=== PATIENT | female | born 1955 | race African-American/Black ===

== ENCOUNTER 2016-07-29 11:09 | Observation (INO) | payer OTHER ==
--- NOTE | 2016-07-29 11:59 | PROVIDER DOCUMENTATION ---
Addendum entered and electronically signed by Juliocesar Downing Scribe 07/29/16 17 :29: Departure - Departure Time of Disposition Order: 17:25 (REASON FOR ADDENDUM CHART WAS PREMATURELY SIGNED BY MYSELF AT [address] CAT ON PHONE WITH DR POWELL WHICH REPORTS TO ADMIT PT ) DIAGNOSIS: Abnormal CK Syncope Qualifiers: Syncope type: unspecified Qualified Code(s): R55 - Syncope and collapse Disposition: HOME 01 Certified Medical Emergency: Emergent Condition: Stable Referrals: Yadira Mendoza MD [Primary Care Provider] - Original Note: HPI-Syncope/Dizziness <Meir Cat - Last Filed: 07/29/16 16:09> - General Source: patient - History of Present Illness-Syncope/Dizzy Prior Episodes: reports: recent history Onset/Duration: reports: 2 days ago Timing: reports: still present Position/Activity at time of episode: reports: standing Symptoms prior to episode: reports: lightheaded, nausea/vomiting Context: reports: almost passed out Loss of Consciousness: no loss of consciousness Recently Seen Here or By Another Healthcare Provider: No - Dizziness Severity in ED: reports: moderate Dizziness Related Current/Associated Symptoms: reports: weakness Any recent trauma/injury?: reports: none Modifying Factors: improves with: nothing Patient usually:: reports: walks without assistance <Juliocesar Downing - Last Filed: 07/29/16 16:13> - General Chief Complaint: Near Syncope Stated Complaint: DIZZINESS/HOT FLASHES Time Seen by Provider: 07/29/16 11:48 Allergies/Adverse Reactions: Patient Allergies Allergy/AdvReac Type Severity Reaction Status Date / Time No Known Allergies Allergy Verified 07/29/16 11:38 Home Medications: Esomeprazole [Nexium] 40 mg PO DAILY 05/18/14 Lisinopril [Zestril] 40 mg PO DAILY 05/18/14 Montelukast [Singulair] 10 mg PO DAILY 05/18/14 Calcium 500 mg PO DAILY 01/05/16 Ergocalciferol (Vitamin D2) [Vitamin D2] 5,000 unit PO DAILY 01/05/16 Hydrocodone/Acetaminophen [Dewey 10-325 Tablet] 1 each PO PRN PRN 01/05/16 LOVAstatin [Mevacor] 20 mg PO WSUPPER 01/05/16 Multivitamin with Minerals [Multiple Vitamin] 1 each PO DAILY 01/05/16 Pramipexole Di-HCl [Mirapex] 1 mg PO QHS 01/05/16 Cetirizine HCl [Zyrtec] 01/09/16 - History of Present Illness-Syncope/Dizzy Nature of Presenting Problem: Reports Gastric bypass [place] last year has lost over 170 lbs and for the past two days has been having dizziness and feelings of goiing to pass out. Pt reports poor appetite. BS on arrival is 79. Pt reports she continues to have vomiting spells. Reports has been to [facility] reports heart is trying to adjust from the weight loss. (Juliocesar Downing) Review of Systems - Adult - REVIEW OF SYSTEMS - ADULT Constitutional: denies: chills, fever, fatique Eyes: reports: no symptoms reported Ears, Nose, Mouth & Throat: denies: ear pain, sinus problem, throat pain Cardiovascular: denies: chest pain, irregular heart rate, orthopnea Respiratory: denies: pleurisy, shortness of breath, wheezing Gastrointestinal: reports: see HPI, nausea, vomiting. denies: diarrhea, difficulty swallowing, frequent heartburn Genitourinary: reports: no symptoms reported Musculoskeletal: reports: other (general weakness). denies: bone pain, back pain, joint pain, joint swelling, neck pain Integumentary: reports: no symptoms reported Neurological: reports: see HPI, dizziness/vertigo. denies: numbness, paresthesia Psychiatric: reports: no symptoms reported Endocrine: reports: no symptoms reported Hematologic/Lymphatic: reports: no symptoms reported Allergic/Immunologic: reports: no symptoms reported All Other Systems: Reviewed and Negative <Juliocesar Downing - Last Filed: 07/29/16 16:13> Past History - Adult - PAST MEDICAL HISTORY-ADULT Review of Records: reports: Nursing Assessment Review, Medications Reviewed Major Childhood Illnesses: reports: denies history Cardiovascular: reports: HTN, hyperlipidemia Gastrointestinal: reports: GERD Musculoskeletal: reports: chronic pain (back and knee), other (osteoarthritis) - PRIOR SURGERIES/PROCEDURES Surgical/Procedure History: reports: hysterectomy, tonsillectomy, orthopedic ( extremity) (knee, hand, and nose) - IMMUNIZATION STATUS Childhood Immunizations: See Nurse Assessment Flu Vaccine: See Nurse Assessment - SOCIAL HISTORY Smoking: denies Substance Use: none/never <Juliocesar Downing - Last Filed: 07/29/16 16:13> Physical Exam-General - PHYSICAL EXAM-ADULT Initial Vital Signs Reviewed: Yes - CONSTITUTIONAL General Appearance: appears well, alert, other (weak appearing) - EYES Eyes: PERRL/EOMI, pink conjunctivae - HEAD, EARS, NOSE, MOUTH & THROAT HENMT: normocephalic/atraumatic, moist mucous membranes, normal ENT inspection - NECK Neck: non-tender, full range of motion, normal inspection - RESPIRATORY Respiratory: chest non-tender, lungs clear, normal breath sounds - CARDIOVASCULAR Cardiovascular: normal peripheral pulses, regular rate, rhythm, no edema - GASTROINTESTINAL (ABDOMEN) Abdominal Exam: normal bowel sounds, non tender, soft - LYMPHATIC Lymphatic: no adenopathy - MUSCULOSKELETAL Back Exam: normal inspection, no CVA tenderness, no vertebral tenderness Extremity: normal range of motion, non-tender, normal gait - SKIN Integumentary: normal color, normal turgor, warm/dry - NEUROLOGIC Neurologic: grossly normal, no motor/sensory deficits - PSYCHIATRIC Psych/Mental Status: normal mood/affect, normal thought content, normal thought process, oriented x 3 <Juliocesar Downing - Last Filed: 07/29/16 16:13> Progress - REASSESSMENT Reassessment #1 Time Reassessed: 16:10 Status: improving (Pt is doing much better and been walking around at ER w/o difficulty) <Meir Cat - Last Filed: 07/29/16 16:09> - EKG 1 Time of EKG reading by physician:: 11:49 EKG Read and Signed by:: Meir Cat EKG Interpretation (*Must complete 3 of following elements*): Abnormal Rate: 47 Rhythm: sinus esperanza [place]: normal QRS: normal - XRAY 1 XRAY: Bilateral XRAY Study: Abdomen Impression: Normal XRAY Interpretation: NAD - CT/MRI 1 CT Study: Abdomen, Pelvis, other (PULM ART) Impression: Normal (NAP INVOLVING CHEST,ABD,OR PELVIS. NO PE) <Juliocesar Downing - Last Filed: 07/29/16 16:13> - PLAN OF CARE/RESULTS Progress/Plan/Lab Results: Orders Category Date Time Status URINALYSIS PL [URINALYSIS] Stat Lab 07/29/16 11:29 Ordered EKG [EKG] Stat Ther 07/29/16 11:29 Ordered Vital Signs - 24 hr 07/29/16 11:30 Temperature 99 F Pulse Rate 58 L Respiratory 18 Rate Blood Pressure 151/93 O2 Sat by Pulse 100 Oximetry Orders Category Date Time Status Cardiac Monitoring DIRECTED Care 07/29/16 12:01 Active Saline Loc NOW Care 07/29/16 12:01 Active ABD/PELVIS/PULM ARTERIES [CT] Stat Exams 07/29/16 13:40 Ordered FLAT/UPRIGHT ABD/1 VIEW CHEST [RAD] Stat Exams 07/29/16 12:01 Draft AMYLASE [CHEM] Stat Lab 07/29/16 12:54 Completed CBC WITH ELECTRONIC DIFF [HEME] Stat Lab 07/29/16 12:54 Completed CK PROFILE [SP CHEM] Stat Lab 07/29/16 12:54 Completed COMPREHENSIVE METABOLIC PANEL [CHEM] Stat Lab 07/29/16 12:[address] D-DIMER [address] [COAG] Stat Lab 07/29/16 12:54 Completed LIPASE [CHEM] Stat Lab 07/29/16 12:54 Completed MAGNESIUM [CHEM] Stat Lab 07/29/16 12:54 Completed PRO B-NATRIURETIC PEPTIDE Stat Lab 07/29/16 12:54 Completed TROPONIN T Stat Lab 07/29/16 12:[address] [URINALYSIS] Stat Lab 07/29/16 11:29 Completed URINE MICROSCOPIC [URINALYSIS] Stat Lab 07/29/16 11:29 Completed 0.9% Sodium Chloride Inj [Ns] 1,000 ml Med 07/29/16 12:01 Discontinued IV 999 mls/hr CefTRIAXONE 1 GM/NS [Rocephin 1 gm/Ns] 50 ml Med 07/29/16 13:39 Active IV NOW EKG [EKG] Stat Ther 07/29/16 11:29 Draft Laboratory Tests 07/29/16 07/29/16 07/29/16 11:29 12:54 12:54 WBC RBC Hgb Hct MCV MCH MCHC RDW Std Deviation Plt Count MPV Immature Gran % (Auto) Neut % (Auto) Lymph % (Auto) [place] % (Auto) Eos % (Auto) Baso % (Auto) Immature Gran # (Auto) Neut # (Auto) Lymph # (Auto) [place] # (Auto) Eos # (Auto) Baso # (Auto) D-Dimer Sodium 139 Potassium 3.7 Chloride 102 Carbon Dioxide 30 Anion Gap 7 BUN 13 Creatinine 0.6 Estimated GFR/1.73 m2 > 60 BUN/Creatinine Ratio 22 Glucose 103 Calculated Osmolality 278 Calcium 9.6 Magnesium 1.9 Total Bilirubin 1.10 H AST 21 ALT 18 Alkaline Phosphatase 91 Creatine Kinase 217 H Creatine Kinase Index 3.3 H CK-MB (CK-2) 7.08 H Troponin T < 0.010 [id number] Pept Total Protein 7.1 Albumin 4.0 Globulin 3.0 Albumin/Globulin Ratio 1.0 Amylase 69 Lipase 13 Urine Source CLEAN CATCH Urine Color YELLOW Urine Clarity CLEAR Urine pH 7.0 Ur Specific [place] 1.020 Urine Protein TRACE A Urine Ketones NEGATIVE Urine Blood NEGATIVE Urine Nitrite NEGATIVE Urine Bilirubin NEGATIVE Urine Urobilinogen 1+(1 mg/dL) Urine Microscopic RBC <10 Urine WBC TRACE A Urine Microscopic WBC 10-20 A Ur Epithelial Cells >10 A Urine Crystals CA OXALATE PRESENT Urine Bacteria 2+ Urine Glucose NEGATIVE 07/29/16 07/29/16 07/29/16 12:54 12:54 12:54 WBC 4.69 L RBC 5.26 Hgb 15.0 Hct 46.0 MCV 87.5 MCH 28.5 MCHC 32.6 L RDW Std Deviation 13.3 Plt Count 260 MPV 10.5 H Immature Gran % (Auto) 0.0 Neut % (Auto) 56.5 Lymph % (Auto) 36.5 [place] % (Auto) 6.4 Eos % (Auto) 0.4 Baso % (Auto) 0.2 Immature Gran # (Auto) 0.00 Neut # (Auto) 2.65 Lymph # (Auto) 1.71 [place] # (Auto) 0.30 Eos # (Auto) 0.02 Baso # (Auto) 0.01 D-Dimer 0.82 H Sodium Potassium Chloride Carbon Dioxide Anion Gap BUN Creatinine Estimated GFR/1.73 m2 BUN/Creatinine Ratio Glucose Calculated Osmolality Calcium Magnesium Total Bilirubin AST ALT Alkaline Phosphatase Creatine Kinase Creatine Kinase Index CK-MB (CK-2) Troponin T [id number] Pept 99 Total Protein Albumin Globulin Albumin/Globulin Ratio Amylase Lipase Urine Source Urine Color Urine Clarity Urine pH Ur Specific [place] Urine Protein Urine Ketones Urine Blood Urine Nitrite Urine Bilirubin Urine Urobilinogen Urine Microscopic RBC Urine WBC Urine Microscopic WBC Ur Epithelial Cells Urine Crystals Urine Bacteria Urine Glucose (Juliocesar Downing) Departure <Meir Cat X - Last Filed: 07/29/16 16:09> - Departure Time of Disposition Order: 16:13 Certified Medical Emergency: Emergent <Juliocesar Downing - Last Filed: 07/29/16 16:13> - Departure DIAGNOSIS: Syncope Qualifiers: Syncope type: unspecified Qualified Code(s): R55 - Syncope and collapse Disposition: HOME 01 Condition: Stable Attestation - Scribe Verification/Attestation Scribe:: Juliocesar Downing Acting as Scribe for:: Meir Cat Scribe documention review:: This chart was documented by a scribe and accurately reflects the service the provider performed and the decisions made by the provider. <Juliocesar Downing - Last Filed: 07/29/16 16:13> Physician Attestation
[2016-07-29] MEDS ORDERED: NS 1,000 ML IV ONE (12:01)
[2016-07-29 12:29] LABS: URINE SOURCE CLEAN CATCH
[2016-07-29 12:37] LABS: BILIRUBIN URINE NEGATIVE (NEGATIVE); BLOOD URINE NEGATIVE (NEGATIVE); CLARITY CLEAR (CLEAR); COLOR YELLOW; GLUCOSE URINE NEGATIVE (NEGATIVE); PROTEIN URINE TRACE mg/dL (NEGATIVE); UROBILINOGEN URINE 1+(1 mg/dL)
[2016-07-29 12:38] LABS: LEUKOCYTES URINE TRACE (NEGATIVE); NITRITE URINE NEGATIVE (NEGATIVE); URINE MICROSCOPIC NEEDED? YES
[2016-07-29 12:39] LABS: URINE CRYSTAL CA OXALATE PRESENT /HPF; URINE EPITHELIAL CELLS >10 /HPF (<10); URINE RBC <10 /HPF (<10)
[2016-07-29 12:57] LABS: MANUAL DIFF NEEDED? NO
[2016-07-29 12:58] LABS: BASO% 0.2 % (0.0-0.8); EOS# 0.02 X1000 (0.0-0.7); EOS% 0.4 % (0.0-10.0); LYMPH# 1.71 X1000 (1.2-3.4); LYMPH% 36.5 % (20.5-51.1); MCH 28.5 PG (27-31); MCHC 32.6 g/dL (33-37); MCV 87.5 FL (81-99); MONO% 6.4 % (1.7-9.3); MPV 10.5 FL (7.4-10.4); NEUT% 56.5 % (42.2-75.2); PLT 260 X1000 (130-400); RBC 5.26 XMIL (4.2-5.4)
--- NOTE | 2016-07-29 13:02 | Diag Imaging Result Document ---
PROCEDURE NAME: FLAT/UPRIGHT ABD/1 VIEW CHEST - 07/29/2016 FRONTAL CHEST X-RAY AND TWO VIEWS OF THE ABDOMEN: COMPARISON: 01/08/2016. FINDINGS: The chest is clear. There are surgical clips in the left upper quadrant in the epigastrium. No bowel obstruction or free air. No abnormal calcifications. There is mild degeneration of the right hip. IMPRESSION: No acute disease.
--- NOTE | 2016-07-29 13:03 | EKG Report ---
Test Performed on : 07/29/2016 11:49:50 AM Test Reason : Dizzy Blood Pressure : / mmHG Vent. Rate : 047 BPM Atrial Rate : 047 BPM P-R Int : 144 ms QRS Dur : 076 ms QT Int : 450 ms P-R-T Axes : 062 095 079 degrees QTc Int : 398 ms Sinus bradycardia. Lateral infarct , age undetermined Abnormal ECG When compared with ECG of 05-JAN-2016 10:38, Lateral infarct is now present T wave amplitude has increased in Inferior leads Unconfirmed Result
[2016-07-29 13:18] LABS: AGAP 7; ALKALINE PHOSPHATASE 91 U/L (32-104); AMYLASE 69 U/L (20-200); BUN 13 mg/dL (8-22); CALCIUM 9.6 mg/dL (8.8-10.2); CHLORIDE 102 mmol/L (98-107); COSMO 278; GOT 21 U/L (10-30); GPT 18 U/L (10-36); LIPASE 13 U/L (13-60); MAGNESIUM 1.9 mg/dL (1.5-2.7); POTASSIUM 3.7 mmol/L (3.5-5.1); SODIUM 139 mmol/L (136-145); TCO2 30 mmol/L (25-35); TOTAL PROTEIN 7.1 g/dL (6.3-8.3)
[2016-07-29 13:27] LABS: CK PROFILE 217 U/L (24-173)
[2016-07-29] MEDS ORDERED: ROCEPHIN 1 GM/NS 50 ML IV ONE (13:39)
[2016-07-29 13:47] LABS: CK INDEX 3.3 (0.0-2.5); CK-MB 7.08 ng/mL (0.0-5.0)
--- NOTE | 2016-07-29 15:45 | Diag Imaging Result Document ---
PROCEDURE NAME: ABD/PELVIS/PULM ARTERIES - 07/29/[address] OF THE ABDOMEN AND PELVIS WITH CONTRAST: COMPARISON: CTA chest dated 05/18/2014. No prior CT of the abdomen and pelvis is available for comparison. FINDINGS: CTA chest: There is no evidence of pulmonary embolism. There is no evidence of aortic aneurysm. There is no evidence of significant mediastinal lymphadenopathy. The heart is perhaps borderline prominent. The lungs are clear. There is no pleural fluid collection. ABDOMEN/PELVIS: There are postsurgical changes associated with the stomach related to prior gastric bypass. There appears to be a punctate nonobstructing intrarenal stone on the right. There is no evidence of hydronephrosis. There is a tiny left renal cyst. There is no evidence of bowel obstruction. There has been a previous hysterectomy. There appear to be a few colonic diverticula, but there is no evidence of diverticulitis. The appendix is normal. No focal inflammatory change, free abdominal gas, or free fluid is appreciated. There is a small umbilical hernia containing only fat. The remainder of the solid viscera of the abdomen and pelvis and the remainder of the GI tract is essentially unremarkable. IMPRESSION: 1. No evidence of pulmonary embolism or other definite acute chest pathology. 2. Postsurgical changes associated with the stomach from prior gastric bypass. 3. Other incidental/nonacute findings detailed above with no definite acute pathology involving the abdomen or pelvis.
[2016-07-29 17:01] LABS: CK INDEX 3.1 (0.0-2.5); CK-MB 6.45 ng/mL (0.0-5.0)
[2016-07-29] MEDS ORDERED: TYLENOL PO PRN (19:40)
[2016-07-29] MEDS ORDERED: NORCO-10 PO PRN (19:40)
[2016-07-29] MEDS: MIRAPEX PO SCH (21:23)
[2016-07-29] MEDS: NS 1,000 ML IV SCH (21:24)
[2016-07-29] MEDS: ZOFRAN IV PRN (21:26)
[2016-07-30] MEDS: NS 1,000 ML IV SCH ×3 (05:33→20:25)
[2016-07-30 08:28] LABS: AGAP 7; ALBUMIN 3.5 g/dL (3.5-5.0); ALKALINE PHOSPHATASE 78 U/L (32-104); BUN 8 mg/dL (8-22); CALCIUM 9.3 mg/dL (8.8-10.2); CHLORIDE 104 mmol/L (98-107); COSMO 273; GOT 20 U/L (10-30); GPT 14 U/L (10-36); POTASSIUM 3.9 mmol/L (3.5-5.1); SODIUM 137 mmol/L (136-145); TCO2 27 mmol/L (25-35); TOTAL PROTEIN 6.2 g/dL (6.3-8.3)
[2016-07-30 08:33] LABS: HEMATOCRIT 42.4 % (37.0-47.0); HEMOGLOBIN 13.9 g/dL (12.0-16.0); MCH 28.7 PG (27-31); MCHC 32.8 g/dL (33-37); MCV 87.6 FL (81-99); MPV 10.9 FL (7.4-10.4); RBC 4.84 XMIL (4.2-5.4)
[2016-07-30] MEDS ORDERED: FLUZONE QUAD 2016-2017 SYRINGE IM ONE (09:00)
[2016-07-30] MEDS: LOVENOX SUBQ SCH (09:31)
--- NOTE | 2016-07-30 11:22 | PROGRESS NOTE ---
DATE: 07/30/2016 SUBJECTIVE: The patient states she is feeling little bit better. Denies any chest pain or palpitations. Denies any diarrhea, constipation or melena. Denies any dysuria, urine frequency, urgency. Denies any dizziness. Does not have any syncope, although she notes she has not been out of bed yet since being admitted last night. PHYSICAL EXAMINATION: Vital Signs: Temperature 98, pulse 53, respiratory 18, BP 116/61. General: Patient well developed, well nourished. Currently in no real respiratory distress. She is awake, alert, oriented. Neck: Supple. CV: Regular rate and rhythm. No murmurs. Chest: Clear, nonlabored. Soft, nondistended, nontender. Extremities: Moves all extremities well. Neurologic: No focal changes. Skin: Warm and dry, no rashes. LABS: Reviewed, stable. Bilirubin of 1.2. ASSESSMENT: 1. Syncope. We will get physical therapy involved today. We will help her get up and move around. Hopefully, this will improve with IV fluids. She states that she is feeling a little bit better and hopefully will be able to discharge home. 2. Mild rhabdomyolysis. For some reason her CPK was elevated at 217 on admission. After IV fluids currently at 136. Hyperbilirubinemia. Uncertain etiology, likely chronic. 3. Elevated D-dimer. Her ultrasound of bilateral lower extremities is negative CTA is currently pending. PLAN: Hopefully she will be able to discharge home later this afternoon if her dizziness and presyncopal symptoms have resolved. We will continue to follow.
--- NOTE | 2016-07-30 12:58 | HISTORY AND PHYSICAL ---
PRIMARY CARE PHYSICIAN: Dr. Mendoza CHIEF COMPLAINT: Dizziness for the past 2 days and a decreased appetite. HISTORY OF PRESENTING ILLNESS: This is a 61-year-old female who has had increased dizziness over the past 2 days, feeling hot, nauseated at times, decreased appetite. Workup in the ER showed an elevated D-dimer at 0.82, elevated CK of 217 with a CK-MB of 7.08 with a negative troponin of 0.010. A CT of the abdomen and pelvis was done that showed no evidence of pulmonary embolism or other definite acute chest pathology and no other incidental acute findings. She was admitted for further evaluation and treatment. PAST MEDICAL HISTORY: Hypertension. Hyperlipidemia. GERD. Chronic back pain. PAST SURGICAL HISTORY: Gastric bypass sleeve. Hysterectomy. Tonsillectomy. FAMILY HISTORY: Noncontributory. SOCIAL HISTORY: She currently lives alone. Denies any tobacco, alcohol, or illicit drug use. ALLERGIES: She has no known drug allergies. HOME MEDICATIONS: We will obtain a current list of her medications and restart as appropriate. LABORATORY DATA: White blood cell count of 4.69. Hemoglobin 15. Hematocrit 46. Platelets . D-dimer of 0.82. Sodium 139. Potassium 3.7. Chloride 102. CO2 of 30. BUN of 13. Creatinine 0.6. Glucose 103. Magnesium 1.9. Creatine kinase of 217. CK-MB of 7.08 with negative troponin. Repeat 4 hours later showed a CK of 208, CK-MB of 6.45, negative troponin. Third set this morning showed a creatine kinase of 136. Urinalysis was trace white blood cells, 2+ bacteria, negative nitrites. REVIEW OF SYSTEMS: She was positive for dizziness, nausea, vomiting, decreased appetite, decreased energy; otherwise, negative review of systems. PHYSICAL EXAMINATION: VITAL SIGNS: Temperature 99 degrees. Pulse 58. Respirations 18. Blood pressure 151/93. Saturating 100% on room air. GENERAL: This is a 61-year-old female who is lying in the bed and answers questions appropriately. HEENT: Normocephalic and atraumatic. Pupils are equal, round, reactive to light. Extraocular movements are intact. Oropharynx and nares are clear. NECK: Supple. LUNGS: Clear to auscultation bilaterally with equal lung expansion and chest wall movement. HEART: Regular rate and rhythm. No murmurs, rubs, or gallops. ABDOMEN: Soft. Nontender, nondistended. Bowel sounds are present x4 quadrants. EXTREMITIES: There is no clubbing, cyanosis, or edema. NEUROLOGICAL: The cranial nerves 2-12 appear grossly intact. ASSESSMENT: 1. Syncope. 2. Elevated CPK. 3. Dizziness. 4. Elevated D-dimer. 5. Bradycardia. 6. Urinary tract infection. PLAN: She was admitted to the medical unit at [facility] and placed on telemetry. We will check an echocardiogram and carotid ultrasound today. We will check a urine culture, check a vitamin B12, and continue normal saline at 125 mL an hour. Lovenox 40 mg subcutaneous q.24 for DVT prophylaxis. We will continue Rocephin until we receive the urine culture back. Dictated by WENDI Munguia for Micah Davidson MD
--- NOTE | 2016-07-30 14:15 | CONSULTATION ---
DATE OF CONSULTATION: 07/30/2016 HISTORY OF PRESENT ILLNESS: Ms. Can is a 61-year-old black lady who has had increasing episodes of dizziness for the last 2 days, had nausea, was admitted came to the emergency room. Had elevated D-dimers, elevated CK and had a CT scan of her chest, abdomen done. There was no pulmonary embolism. She denies chest pain suggestive of angina. She has had gastric bypass and is followed by Dr. Murcia. She says she has been having nausea and some vomiting almost at least 3- 4 times a week. This is been an ongoing process and she has followup appointment to follow up with the surgeon and further test may need to be done given the gastric bypass sleeve. There is no hematemesis or melena. From a cardiac standpoint, she has not had any significant cardiac history other than having had a cardiac murmur in the past. She also was noted to have bradycardia in the past. She has a history of hypertension. REVIEW OF SYSTEMS: Fourteen-point review of systems was done.GI: As above. Genitourinary: There is no dysuria or hematuria. Cardiovascular System: No chest pain. Endocrine: Stable. Musculoskeletal system: Has had knee surgery. PAST MEDICAL HISTORY: 1. Durga arrhythmias. 2. Hypertension. 3. Gastric bypass surgery. 4. Left knee arthroplasty 01/07/2016. 5. Cardiac murmur. 6. Hypertension. 7. Gastroesophageal reflux disease. 8. Hypercholesterolemia. 9. Has had bradycardia in the past with a heart rate of 46 beats per minute, sinus bradycardia. This was also noted during arthroscopy. MEDICATIONS AT HOME: Medications need to be reconciled at least from our office. Notes she was on lisinopril 40, lovastatin 20, Singulair 10, Pepcid 20, Nexium 40. PHYSICAL EXAMINATION: Vital Signs: Blood pressure was 155/88. Cardiovascular System: Normal jugular venous pressure. First and second heart sounds heard. There was systolic murmur. There was no S3 gallop. Respiratory System: Normal air entry. There is no crepitations or rhonchi. Abdomen: Soft, nontender. There was no guarding or rigidity. Bowel sounds were heard. Central nervous system: Alert and was moving all 4 extremities. Extremities: Examination of extremities revealed no pedal edema. HEENT: Atraumatic, normocephalic. Pupils were equal and reacting to light. LABORATORY EXAMINATION: Revealed sodium 137, potassium 3.9, BUN 8, creatinine 0.6. Troponin 2 sets were negative. CK 208 and 1361. CK/MB was 6.4. Echocardiogram revealed sinus bradycardia. There were no ST-T changes to suggest ischemia. ASSESSMENT AND PLAN: 1. Ms Gaby Can is a 61-year-old black lady with history of hypertension, hypercholesterolemia, bradycardia in the past and a murmur was seen today. She has had episode of dizziness. So far she is in sinus rhythm. I have not made any changes to her medication. She is not on any beta blockers to account for decreasing heart rate. Will get an echocardiogram to reassess cardiac and valvular function. 2. She has had nausea and vomiting at least 4 times a week since the gastric bypass surgery and is going to see the bariatric surgeon and apparently surgery may need to be contemplated. I have not made any other changes to her medications. She has had dizziness but currently she feels well. Thank you for the consult.
--- NOTE | 2016-07-30 15:27 | ECHO REPORT ---
ORDER DATE: 07/30/2016 PROCEDURE: Echocardiogram. ECHOCARDIOGRAPHIC MEASUREMENTS: 1. Interventricular septum 1.4 2. Left ventricular posterior wall 1.3. 3. Diastolic diameter 4.5. 4. Left atrium 4.0. 5. Aorta 3.4. INTERPRETATION: 1. Normal left ventricular cavity size. Mild left ventricular hypertrophy. Estimated ejection fraction of 60%. 2. Aortic valve leaflets are trileaflet. 3. Mitral valve was normal. 4. Tricuspid valve was normal. 5. Pulmonic valve was normal. 6. Peak velocity across the aortic valve less than 2 m/sec. There is no aortic stenosis. There is mild aortic regurgitation. 7. There is mild to moderate tricuspid regurgitation. Peak velocity across the tricuspid valve was 3.3 m/sec. 8. Pulmonary artery systolic pressure 46 mmHg, 9. There is mild mitral regurgitation. Trace pulmonary regurgitation. 10. There is no pericardial effusion or obvious intracardiac mass or thrombus seen. 11. There is mild left atrial enlargement.
[2016-07-30] MEDS ORDERED: NORCO-10 PO PRN (16:35)
[2016-07-30] MEDS: ZOFRAN IV PRN (16:59)
[2016-07-30] MEDS ORDERED: ZOFRAN ODT PO PRN (17:45)
[2016-07-30] MEDS: PRINIVIL PO SCH (18:40)
[2016-07-30] MEDS: NEXIUM PO SCH (18:40)
[2016-07-30] MEDS: MIRAPEX PO SCH (20:24)
[2016-07-31] MEDS: NS 1,000 ML IV SCH (04:11)
[2016-07-31 05:59] LABS: MANUAL DIFF NEEDED? NO
[2016-07-31 06:18] LABS: AGAP 6; BASO% 0.4 % (0.0-0.8); BUN 7 mg/dL (8-22); CALCIUM 8.7 mg/dL (8.8-10.2); CHLORIDE 106 mmol/L (98-107); COSMO 273; EOS# 0.16 X1000 (0.0-0.7); EOS% 3.4 % (0.0-10.0); HEMATOCRIT 41.9 % (37.0-47.0); HEMOGLOBIN 13.3 g/dL (12.0-16.0); LYMPH# 2.64 X1000 (1.2-3.4); LYMPH% 56.2 % (20.5-51.1); MCH 28.1 PG (27-31); MCHC 31.7 g/dL (33-37); MCV 88.6 FL (81-99); MONO# 0.48 X1000 (0.11-0.59); MONO% 10.2 % (1.7-9.3); MPV 10.6 FL (7.4-10.4); NEUT% 29.8 % (42.2-75.2); PLT 203 X1000 (130-400); RBC 4.73 XMIL (4.2-5.4); SODIUM 138 mmol/L (136-145); TCO2 26 mmol/L (25-35)
[2016-07-31] MEDS: NEXIUM PO SCH (06:33)
[2016-07-31] MEDS ORDERED: ZYRTEC PO SCH (09:00)
[2016-07-31] MEDS ORDERED: VITAMIN D PO SCH (09:00)
[2016-07-31] MEDS ORDERED: SINGULAIR PO SCH (09:00)
[2016-07-31] MEDS: PRINIVIL PO SCH (09:14)
[2016-07-31] MEDS: LOVENOX SUBQ SCH (09:14)
[2016-07-31 12:07] VITALS: BP 169/72
[2016-07-31] MEDS ORDERED: MEVACOR PO SCH (17:00)
--- NOTE | 2016-08-01 06:23 | DISCHARGE SUMMARY ---
ADMISSION DATE: 07/29/2016 DISCHARGE DATE: 07/31/2016 PRIMARY CARE PHYSICIAN: Dr. Mendoza. ADMISSION DIAGNOSES: 1. Syncope. 2. Elevated CPK. 3. Dizziness. 4. Elevated D-dimer. 5. Bradycardia. 6. Urinary tract infection. SUMMARY OF FINDINGS: This is a 61-year-old, female who presented to [facility] ER with complaints of dizziness, feeling hot, nauseous at times, decreased appetite. She does state that her nausea and vomiting have been since she had a gastric sleeve done. They did a CT of the abdomen and pelvis that showed no evidence of a pulmonary emboli or acute chest pathology. Urinalysis showed negative nitrites but a trace of white blood cells and 2+ bacteria. A urine culture showed no growth. She had some elevation in her CK and CK-MB mildly when she came in. That has resolved. We checked a vitamin B12 level due to her complaints of fatigue and her surgery with gastric sleeve. It was 660, within normal limits. D-dimer was 0.82. We did a venous ultrasound of bilateral lower extremities that was negative for a DVT. She was noted to have some bradycardia, going as low as 40 but mainly stayed in upper 40s and lower 50s. This morning, she is at 55. We did consult cardiology who saw the patient, did echocardiogram. She had an estimated ejection fraction of 60% with normal left ventricular cavity size. She was not on any beta blockers that would account for her bradycardia so no medication changes were made at this time. This morning, she states that she is feeling better and so it is felt that she can safely be discharged home today. She will continue her home medications with no new prescriptions as follows: Zyrtec 10 mg p.o. daily, vitamin D3 5000 units p.o. daily, Nexium 40 mg p.o. daily, lisinopril 40 mg p.o. daily, lovastatin 20 mg p.o. with supper, Singulair 10 mg p.o. daily, Zofran 4 mg p.o. q.6 hours p.r.n., Mirapex 1 mg p.o. at bedtime, and her [place] 10 one p.o. q.6-8 hours p.r.n. FOLLOWUP: The patient will follow up with her primary care physician in 1-2 weeks. We will also give her a prescription for Bactrim DS 1 p.o. b.i.d. for 7 days. The patient states that she has had some hot flashes recently and she was instructed to follow up with her [employer] for a complete hormone workup and the possibility of hormone replacement therapy. Patient verbalized understanding. A 32 minute discharge. Dictated by WENDI Munguia for Maximilian Hoang MD
--- NOTE | 2016-08-02 07:15 | Extremity Venous Study ---
PROCEDURE NAME: Venous U/S Bilateral Legs - 07/30/2016 BILATERAL VENOUS FLOW EVALUATION: INDICATION: Elevated D dimer. FINDINGS: The deep veins of the lower extremities demonstrate appropriate compressibility and augmentation. No intraluminal thrombus is visualized. There is no evidence for DVT. Superficial veins are patent. IMPRESSION: No evidence for deep venous thrombosis bilateral lower extremities.
--- NOTE | 2016-08-02 07:16 | Extremity Venous Study ---
PROCEDURE NAME: Carotid Ultrasound - 07/30/2016 CAROTID FLOW EVALUATION: INDICATION: Syncope. FINDINGS: There is mild intimal thickening. No velocity elevations are identified to suggest hemodynamically significant carotid artery stenosis. Vertebral flow is antegrade bilaterally. Estimated stenosis is less than 50% bilaterally. IMPRESSION: No evidence for hemodynamically significant carotid artery stenosis. Estimated stenosis is less than 50% bilaterally.
== END 2016-07-31 13:10 | disposition home or self-care (01) ==
LOC: P.ED 11:09 → P.MEDSURG 17:44
PROVIDERS: ADMIT Internal Medicine; ATTEND Internal Medicine
DX: R55 Syncope and collapse (principal); N39.0 Urinary tract infection, site not specified; R00.1 Bradycardia, unspecified; R74.8 Abnormal levels of other serum enzymes; R79.1 Abnormal coagulation profile; R42 Dizziness and giddiness; R01.1 Cardiac murmur, unspecified; I10 Essential (primary) hypertension; E78.00 Pure hypercholesterolemia, unspecified; E78.5 Hyperlipidemia, unspecified; E80.6 Other disorders of bilirubin metabolism; R11.2 Nausea with vomiting, unspecified; R53.1 Weakness; N95.1 Menopausal and female climacteric states; K21.9 Gastro-esophageal reflux disease without esophagitis; G89.29 Other chronic pain; M19.90 Unspecified osteoarthritis, unspecified site; Z23 Encounter for immunization; Z79.899 Other long term (current) drug therapy; Z98.84 Bariatric surgery status
CPT/HCPCS: 36415; 71275; 74022; 74177; 80048; 80053; 81001; 82150; 82550; 82553; 82607; 82948; 83690; 83735; 83880; 84484; 85025; 85027; 85379; 87088; 93005; 93306; 93880; 93970; 96361; 96365; J0696; J1650; J2405; J7030; Q2038; Q9967

== ENCOUNTER 2016-09-27 11:13 | Emergency (ER) | payer OTHER ==
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
[2016-09-27 14:12] VITALS: BP 176/80
--- NOTE | 2016-09-27 14:38 | Diag Imaging Result Document ---
PROCEDURE NAME: ELBOW COMPLETE RIGHT - 09/27/2016 RIGHT ELBOW 3 VIEWS: FINDINGS: There is a spur at the olecranon. There is no evidence of fracture or dislocation. IMPRESSION: No acute bony disease.
--- NOTE | 2016-09-27 14:42 | Diag Imaging Result Document ---
PROCEDURE NAME: SHOULDER-RIGHT - 09/27/2016 RIGHT SHOULDER, 3 VIEWS: FINDINGS: There is degenerative change in the acromioclavicular joint. There is no evidence of acute fracture or dislocation. IMPRESSION: Osteoarthritis.
== END 2016-09-27 14:11 | disposition home or self-care (01) ==
LOC: P.ED 11:13
DX: S43.401A Unspecified sprain of right shoulder joint, initial encounter (principal); T74.91XA Unspecified adult maltreatment, confirmed, initial encounter; M25.511 Pain in right shoulder; M25.521 Pain in right elbow; R00.1 Bradycardia, unspecified; I10 Essential (primary) hypertension; E78.5 Hyperlipidemia, unspecified; K21.9 Gastro-esophageal reflux disease without esophagitis; Z79.899 Other long term (current) drug therapy; M54.9 Dorsalgia, unspecified; M25.569 Pain in unspecified knee; G89.29 Other chronic pain; M19.90 Unspecified osteoarthritis, unspecified site; Z87.891 Personal history of nicotine dependence; Z79.51 Long term (current) use of inhaled steroids
CPT/HCPCS: 99283

== ENCOUNTER 2018-10-27 08:27 | Inpatient (IN) ==
[~2018-10-27 08:27] MED LIST: DIPRIVAN 1% ONE; FENTANYL ONE; QUELICIN (DOSE) ONE; ROBINUL ONE; XYLOCAINE-MPF 2% ONE; ZEMURON ONE
[2018-10-27] MEDS ORDERED: SENSORCAINE 0.5%-EPI 1:200,000 ONE (08:35)
[2018-10-27] MEDS ORDERED: LR 1,000 ML ONE ×2 (08:36→08:54)
[2018-10-27] MEDS ORDERED: SODIUM CHLORIDE 0.9% ONE (08:36)
[2018-10-27] MEDS ORDERED: KEFZOL 1 GM/D5W 1 GM/50 ML IVPB ONE (08:54)
[2018-10-27] MEDS ORDERED: PEPCID ONE (08:54)
[2018-10-27] MEDS ORDERED: REGLAN ONE (08:54)
[2018-10-27] MEDS ORDERED: NEOSTIGMINE ONE (09:59)
[2018-10-27] MEDS ORDERED: ZOFRAN ONE (10:01)
[2018-10-27] MEDS ORDERED: DECADRON ONE (10:34)
[2018-10-27] MEDS ORDERED: LABETALOL (DOSE) ONE ×2 (10:52→11:11)
[2018-10-27] MEDS ORDERED: PHENERGAN ONE (11:02)
[2018-10-27] MEDS ORDERED: MORPHINE ONE (11:07)
[2018-10-27] MEDS ORDERED: SODIUM CHLORIDE 0.9% 10 ML ONE (11:08)
[2018-10-27] MEDS ORDERED: ZEMURON ONE (11:17)
[2018-10-27] MEDS ORDERED: APRESOLINE ONE (11:27)
--- NOTE | 2018-10-27 12:42 | Diag Imaging Result Doc PS360 ---
EXAM: OPERATIVE CHOLANGIOGRAM - 10/27/2018 HISTORY: SYMPTOMATIC CHOLECYSTITIS TECHNIQUE: Intraoperative angiogram one view. The procedure was performed by the referring provider the OR. The fluoroscopy time is 14 seconds. The radiation dose is 0.98149 cGy centimeters square. There is one image submitted. COMPARISON: None. FINDINGS: There is a single image submitted which shows contrast in the cystic duct, common bile/hepatic duct, central intrahepatic bile. In duodenum. There are no discrete intraluminal filling defects identified in the opacified system. The duodenal contrast indicates patency of the ampulla of Vater. IMPRESSION: No indication of retained stone. Electronically signed by Dmitriy Marie 10/27/2018 12:39 PM
[2018-10-27] MEDS ORDERED: NS 1,000 ML ONE (13:10)
[2018-10-27] MEDS: MORPHINE ONE ×6 (13:14→15:15)
[2018-10-27] MEDS ORDERED: LEVSIN PO PRN (15:44)
[2018-10-27] MEDS ORDERED: ZOFRAN PO PRN (15:44)
[2018-10-27] MEDS ORDERED: BUPRENEX IV PRN (15:44)
--- NOTE | 2018-10-27 17:28 | OPERATIVE NOTE ---
PROCEDURE DATE: 10/27/2018 PREOPERATIVE DIAGNOSIS: Symptomatic cholelithiasis. POSTOPERATIVE DIAGNOSIS: Symptomatic cholelithiasis. PROCEDURE: Attempted laparoscopic cholecystectomy converted to open cholecystectomy with operative cholangiogram and lysis of adhesions. SURGEON: Villa Adams MD. ANESTHESIA: General. ESTIMATED BLOOD LOSS: 50 mL. COMPLICATIONS: None apparent. SPECIMENS: Gallbladder. FINDINGS: There were extensive adhesions of the small bowel, colon and stomach to the anterior abdominal wall, liver and gallbladder. This required an open exploration for exposure. The cholangiogram revealed normal proximal hepatic radicles with filling of the common bile duct and empty of contrast into the duodenum. There were no filling defects or stenoses. The gallbladder appeared to be chronically inflamed. TECHNIQUE: The patient was brought to the operating room and placed supine on the table. General anesthesia was induced. She was prepped and draped in usual sterile fashion. 0.25% Marcaine with epinephrine was used to anesthetize our laparoscopic incisions. An 11 mm incision was made above the umbilicus. The fascia was exposed and incised sharply. The peritoneum was grasped between hemostats and incised sharply and I placed a trocar into what appeared to be the peritoneal cavity. Pneumoperitoneum was attempted. We inserted the camera. However, there were extensive adhesions of small bowel and omentum without any clear open window into the peritoneal cavity safely. I then attempted 2 separate entries with 5 mm incision ports and the Optiview device in the right upper quadrant, left upper quadrant with the same findings. I then aborted and decided to do an open exploration so we converted her periumbilical incision to an incision extended up to the xiphoid. The skin was incised with a knife. The subcutaneous tissue and fascia was incised with cautery and we took down adhesions of the small bowel from the anterior abdominal wall with scissors as we went. I then began taking down more adhesions of the omentum and small bowel with Metzenbaum scissors and cautery until I could see the liver. I then carefully dissected the small bowel which was plastered to the liver. This was done mostly with Metzenbaum scissors until I could find the gallbladder. The gallbladder was then grasped with an Allis clamp and lifted up. I then began taking the gallbladder from a dome down fashion working between the gallbladder and the liver with the cautery and blunt finger dissection until we began to come down to the antonio hepaticus. I then used a Kittner dissector to tease away the fibroareolar tissue and I dissected out the triangle of Calot and only 2 structures were entering the gallbladder, the cystic duct and cystic artery. The artery was clipped proximally and distally and incised between with scissors. A clip was placed on the gallbladder side of the cystic duct. A ductotomy was made proximal to this with scissors. A taut cholangiogram catheter was passed into the cystic duct and held in place with a clip. The cholangiogram was performed with findings as noted above. The proximal clip and cholangiogram catheter were removed. The proximal cystic duct was clipped 3 times and it was divided distal to these with scissors. We then washed out the abdominal cavity with warm saline. There was no signs of any bleeding or bile leakage or injury to surrounding structures. I did place a 19 Jonah drain through a right lateral abdominal incision and placed it in Morison pouch. It was anchored to the skin with nylon suture. I closed the midline fascia with a running #1 looped Maxon and the skin with skin clips. There were no apparent complications. She was awakened in stable condition and transferred to the recovery room. cc: Villa Adams MD
[2018-10-27] MEDS: REGLAN PO SCH (18:43)
[2018-10-27] MEDS: NORCO-7.5 PO PRN (18:44)
[2018-10-27] MEDS ORDERED: PRINIVIL PO ONE (19:30)
[2018-10-27] MEDS: ZANAFLEX PO SCH (21:58)
[2018-10-28] MEDS: NORCO-7.5 PO PRN (03:41)
[2018-10-28] MEDS: REGLAN PO SCH ×3 (06:06→15:12)
[2018-10-28 07:07] LABS: HEMATOCRIT 32.7 % (37.0-47.0); HEMOGLOBIN 10.1 g/dL (12.0-16.0)
[2018-10-28] MEDS: MIRAPEX PO SCH ×2 (07:51→12:20)
[2018-10-28] MEDS: ZANAFLEX PO SCH ×3 (07:51→23:32)
[2018-10-28] MEDS: NEXIUM PO SCH ×2 (07:51→12:20)
[2018-10-28] MEDS: CYMBALTA PO SCH ×2 (07:52→12:19)
[2018-10-28] MEDS: MOVANTIK PO SCH ×2 (07:52→12:20)
[2018-10-28] MEDS: PRINIVIL PO SCH ×2 (07:52→12:20)
[2018-10-28] MEDS: NORCO-10 PO PRN ×3 (07:56→19:43)
--- NOTE | 2018-10-28 11:20 | GENERAL SURGERY PROGRESS NOTE ---
DATE: 10/28/2018 SUBJECTIVE: Patient seems to be doing okay. OBJECTIVE: Vital Signs: Patient is currently afebrile. Her vital signs stable. General: No acute distress. Cardiovascular: Regular rate and rhythm. Lungs: Grossly clear. Abdomen: Soft, appropriately tender. PEMA drain in place with serosanguineous output. Dressing intact. ASSESSMENT AND PLAN: A 63-year-old female status post open cholecystectomy. Postoperative state. At this time, we will advance her pain medicine. She does not want any more besides a clear liquid diet at this point. We will plan on advancing it tomorrow. cc: MD Villa Ng MD
[2018-10-28] MEDS: NS 1,000 ML IV SCH (16:00)
[2018-10-29] MEDS: NORCO-10 PO PRN ×4 (03:02→22:33)
[2018-10-29] MEDS: NS 1,000 ML IV SCH ×4 (05:27→23:57)
[2018-10-29] MEDS: REGLAN PO SCH ×3 (06:31→19:59)
--- NOTE | 2018-10-29 07:31 | GENERAL SURGERY PROGRESS NOTE ---
DATE: 10/29/2018 SUBJECTIVE: Patient seems to be doing okay. OBJECTIVE: Vital Signs: The patient is currently afebrile. Her vital signs are stable. General Examination: No acute distress. Cardiovascular: Regular rate and rhythm. Lungs: Grossly clear. Abdomen: Soft. Appropriately tender. PEMA drain in place with serosanguineous output. ASSESSMENT AND PLAN: A 63-year-old female postop day #2 from open cholecystectomy. Postoperative state. At this time, she seems to be doing okay. We will advance her diet. Hopefully, she can be discharged in the near future. cc: MD Villa Ng MD
[2018-10-29] MEDS: NEXIUM PO SCH (08:27)
[2018-10-29] MEDS: MOVANTIK PO SCH (08:27)
[2018-10-29] MEDS: MIRAPEX PO SCH (08:27)
[2018-10-29] MEDS: ZANAFLEX PO SCH ×2 (08:28→20:47)
[2018-10-29] MEDS: PRINIVIL PO SCH (08:28)
[2018-10-29] MEDS: CYMBALTA PO SCH (08:29)
[2018-10-30] MEDS: NORCO-10 PO PRN ×2 (04:51→10:45)
[2018-10-30] MEDS: REGLAN PO SCH (06:50)
[2018-10-30] MEDS ORDERED: COLACE PO SCH (09:00)
[2018-10-30] MEDS: ZANAFLEX PO SCH (09:04)
[2018-10-30] MEDS: NEXIUM PO SCH (09:04)
[2018-10-30] MEDS: CYMBALTA PO SCH (09:05)
[2018-10-30] MEDS: MIRAPEX PO SCH (09:05)
[2018-10-30] MEDS: MOVANTIK PO SCH (09:05)
[2018-10-30] MEDS: PRINIVIL PO SCH (09:13)
[2018-10-30] MEDS ORDERED: SALINE LOCK IV FLUID XX ONE (09:49)
[2018-10-30 12:11] VITALS: BP 100/60
--- NOTE | 2018-11-10 15:31 | DISCHARGE SUMMARY ---
ADMISSION DATE: 10/27/2018 DISCHARGE DATE: 10/30/2018 ADMITTING DIAGNOSIS: Symptomatic cholelithiasis. DISCHARGE DIAGNOSIS: Symptomatic cholelithiasis and chronic cholecystitis. PROCEDURES: Laparoscopic converted to open exploratory laparotomy with lysis of adhesions and open cholecystectomy with cholangiogram. HOSPITAL COURSE: She was brought in through outpatient surgery for laparoscopic cholecystectomy. However, a laparoscopic approach was not possible given the severe amount of intra-abdominal adhesions found at surgery. She was converted to an open exploration requiring significant amount of lysis of adhesions and open cholecystectomy. For full details, please see the dictated operative report. Postoperatively she did quite well. She was able to begin drinking liquids within 1 day after surgery. She was able to get out of bed. She was afebrile. Her vital signs are stable. By postoperative day 2, she was advanced to a soft diet. Her exam had not changed, and by postoperative day 3, she was tolerating diet. Her vital signs were stable. She was comfortable and was discharged home. INSTRUCTIONS: No lifting over 10 to 15 pounds. She may shower. She should follow up with Dr. Adams in 1 to 2 weeks. DISCHARGE MEDICATIONS: [place] 10 mg 1 p.o. q. 6 hours p.r.n. pain. She will resume her home Lesterol, Nexium, Mirapex, Zofran, Zanaflex, Movantik, Cymbalta, omeprazole, Reglan and Levsin. cc: MD Yadira Woodson MD
== END 2018-10-30 13:03 | disposition home or self-care (01) | DRG 416 ==
LOC: OR 08:27 → 4N 16:10
PROVIDERS: ADMIT Surgery; ATTEND Surgery
CPT/HCPCS: 74300; 85014; 85018; 88304; 94761; 94799; A9270; C1751; J0330; J0360; J0592; J0690; J1100; J2270; J2405; J2550; J3010; J7030; J7120; Q9966; Q9967

== ENCOUNTER 2019-01-17 05:17 | Inpatient (IN) ==
[2019-01-11 14:44] LABS: HEMATOCRIT 36.9 % (37.0-47.0); HEMOGLOBIN 11.6 g/dL (12.0-16.0); MCH 25.8 PG (27-31); MCHC 31.4 g/dL (33-37); MCV 82.2 FL (81-99); MPV 11.2 FL (7.4-10.4); RBC 4.49 XMIL (4.2-5.4); RDW 13.6 % (11.5-14.5); WBC 5.86 X1000 (4.8-10.8)
[2019-01-11 15:13] LABS: AGAP 10; BUN 20 mg/dL (8-22); CALCIUM 9.3 mg/dL (8.8-10.2); CHLORIDE 101 mmol/L (98-107); COSMO 270; CREATININE 0.9 mg/dL (0.5-0.9); ESTIMATED GFR > 60; GLUCOSE 89 mg/dL (70-104); POTASSIUM 4.4 mmol/L (3.5-5.1); SODIUM 134 mmol/L (136-145); TCO2 23 mmol/L (25-35)
[2019-01-17] MEDS ORDERED: LR 1,000 ML ONE (06:13)
[2019-01-17] MEDS ORDERED: KEFZOL 1 GM/D5W 2 GM/100 ML IVPB ONE (06:13)
[2019-01-17] MEDS ORDERED: PEPCID ONE (06:13)
[2019-01-17] MEDS ORDERED: KEFZOL 1 GM/D5W 1 GM/50 ML IVPB ONE (06:14)
[2019-01-17] MEDS ORDERED: FENTANYL ONE ×3 (06:15→09:10)
[2019-01-17] MEDS ORDERED: DIPRIVAN 1% ONE (06:15)
[2019-01-17] MEDS ORDERED: ZOFRAN ONE (06:17)
[2019-01-17] MEDS ORDERED: MARCAINE 0.25% PF/EPI 1:200,000 ONE (06:32)
[2019-01-17] MEDS ORDERED: ZEMURON ONE ×2 (07:46→09:28)
[2019-01-17] MEDS ORDERED: QUELICIN (DOSE) ONE (07:46)
[2019-01-17] MEDS ORDERED: MORPHINE ONE ×2 (11:25→11:34)
[2019-01-17] MEDS ORDERED: ROBINUL ONE (11:25)
[2019-01-17] MEDS ORDERED: NEOSTIGMINE ONE (11:25)
[2019-01-17] MEDS ORDERED: LABETALOL IV PRN (12:30)
[2019-01-17] MEDS: LR 1,000 ML IV SCH ×2 (13:06→22:18)
[2019-01-17] MEDS: KEFZOL 1 GM/D5W 1 GM/50 ML IVPB IV SCH ×2 (15:06→22:18)
[2019-01-17] MEDS: MORPHINE IV PRN ×2 (15:13→16:53)
[2019-01-17 16:11] LABS: URINE SOURCE CATH
[2019-01-17 16:14] LABS: BILIRUBIN URINE NEGATIVE (NEGATIVE); BLOOD URINE LARGE (NEGATIVE); COLOR ORANGE; GLUCOSE URINE NEGATIVE (NEGATIVE); KETONE URINE TRACE mg/dL (NEGATIVE); LEUKOCYTES URINE SMALL (NEGATIVE); NITRITE URINE NEGATIVE (NEGATIVE); PROTEIN URINE 100 mg/dL (NEGATIVE); TURBIDITY URINE HAZY (CLEAR); UROBILINOGEN URINE NORMAL (NORMAL)
[2019-01-17 16:16] LABS: UR EPITHELIAL CELLS <10 /HPF (<10); URINE BACTERIA NEGATIVE /HPF; URINE RBC TNTC /HPF (<10)
[2019-01-17] MEDS: ZOFRAN IV PRN (18:35)
[2019-01-17] MEDS ORDERED: MOVANTIK PO PRN (18:41)
--- NOTE | 2019-01-17 19:12 | OPERATIVE NOTE ---
PROCEDURE DATE: 01/17/2019 PREOPERATIVE DIAGNOSIS: Right ureteral stricture and hydronephrosis. POSTOPERATIVE DIAGNOSES: 1. Right ureteral stricture and hydronephrosis. 2. Extensive abdominal adhesions. PROCEDURE: Exploratory laparotomy with extensive lysis of adhesions greater than 1 hour. SURGEON: Villa Adams MD [employer] REPAIRER: Brayan Powers MD ANESTHESIA: General. FINDINGS: She had extensive adhesions of her small bowel to the anterior abdominal wall and interloop adhesions, which made visualization of her lower abdomen and pelvis impossible without significant lysis of adhesions. INDICATIONS: Dr. Powers asked for an intraoperative consult and assistance as he was seeking to do a ureteral reimplantation and stent placement, but to get visualization of the bladder and ureter, he needed some assistance with the adhesions so I joined him as an intraoperative consult and became the primary surgeon for that portion of the procedure. TECHNIQUE: The abdomen had previously been opened by Dr. Powers. Please see his dictation. When I joined him, there were still numerous adhesions and really no entry into the peritoneal cavity yet. Just the fascia had been incised so we began taking down the adhesions with cautery and Metzenbaum scissors carefully little by little until I could expose entry to the peritoneal cavity safely. We extended our fascia and skin incision cephalad and caudad as necessary to allow good retraction and visualization. We spent quite a bit of time, probably a little more than 1 hour taking down the small bowel adhesions until we could mobilize the bowel up out of the pelvis and off of the anterior abdominal wall. We did this safely. I did not detect any injury to the bowel. Once this was accomplished, a Bookwalter was brought in and placed and Dr. Powers was ready to proceed with his ureteral repair. Dr. Wyatt joined him at this point for the remaining portion of the case, and I scrubbed out. cc: MD Brayan Woodson MD
--- NOTE | 2019-01-17 19:16 | OPERATIVE NOTE ---
PROCEDURE DATE: 01/17/2019 PREOPERATIVE DIAGNOSES: 1. Right ureteral stricture. 2. Hydronephrosis. 3. Flank pain. POSTOPERATIVE DIAGNOSES: 1. Right ureteral stricture. 2. Right flank pain. 3. Right hydronephrosis. 4. Extensive abdominal adhesions. SURGEON: Brayan Powers MD ASSISTANTS: 1. Villa Adams MD, with General Surgery. 2. Garland Wyatt MD, with Urology. Dr. Adams was present for all garg portions of the lysis of adhesions. Dr. Wyatt was present for all portions of the right ureteral reimplant. DRAINS: 1. Jonah drain. 2. A 16-Nepali Gaytan catheter. 3. A 6 x 22 cm right ureteral stent. BLOOD LOSS: 350 mL URINE OUTPUT: 350 mL PROCEDURES PERFORMED: 1. Open right ureteral reimplant. 2. Right Psoas Hitch 3. Ureteral stent placement, 6 x 22 cm. 4. Extensive lysis of adhesions, greater than 1 hour. SPECIMENS: Right ureteral stricture. INDICATION FOR PROCEDURE: Ms. Can is a 63-year-old who has a history of hydronephrosis of the right kidney. The patient has had multiple kidney stones in the past and developed a right ureteral stricture. This has been biopsied and showed no evidence of malignancy. The patient was given the opportunity to have serial stenting versus ureteroscopy with laser incision or balloon dilation, versus definitive surgical intervention. Due to the patient's extensive primary surgical history, a robotic-assisted laparoscopic right ureteral reimplant versus open ureteral reimplant were discussed with the patient. The patient desired to proceed with open right ureteral reimplant. Risks, benefits and alternatives to the surgical procedure were discussed with the patient including bleeding, infection, damage to surrounding organs, need for extensive lysis of adhesions, redeveloping ureteral stricture, worsening kidney stones or need for secondary procedure. After all discussion, the patient elected to proceed. DESCRIPTION OF PROCEDURE: After informed consent was obtained, the patient was brought to the operating room and placed on the operating table in supine position. The patient received preoperative antibiotics and underwent general anesthesia with endotracheal intubation. The patient was then prepped and draped in the usual sterile fashion. A preoperative time-out was performed with all parties in agreement, including anesthesia, surgical and nursing staff. At this time a midline incision was then marked starting at the pubic bone and up towards the umbilicus. Using a 10 blade, this was excised through the fascial layers and this was carried down both with sharp and electrocautery, all the way down to the fascia itself. The patient had a lot of serpentine vessels and bleeding as we dissected through the overlying fat. Once this was dissected out, the fascia was then visualized and was excised, at which point the rectus abdominis was visualized and the peritoneum was then seen underneath this. The fascia was then adequately mobilized caudally and cranially, and I was able to see the peritoneum and excise this with Metzenbaum scissors. Once this was excised, a large amount of anterioa abdominal adhesions and interloop adhesions were seen. Multiple adhesions were seen between loops of bowel as well as adherent to the abdominal wall. I tried to dissect these out, but was having difficulty obtaining good mobility. Due to concern regarding this, I called General Surgery for assistance. Dr. Villa Adams was able to assist me in performing lysis of adhesions. We attempted to lyse adhesions for over an hour, until these were adequately mobilized and the bowel was able to be mobilized out of the pelvis. For his operative report, see separately dictated note. No evidence of any serosal abnormalities were seen, and the bowel appeared to be easily freed up in the pelvis and lower abdomen. Once this was performed, his part of the procedure was complete and I was able to use the retractor set to allow good mobility of the abdominal contents away from the retroperitoneum. The peritoneum was then seen overlying the iliac vessels. Ultimately I was able to visualize a structure within the retroperitoneum that crosses over the iliac. This was quite large, with concern that this would be the ureter itself. No obvious peristalsis was seen. I was able to dissect around the ureter using a right-angle clamp, and using a Vesseloop I was able to dissect off the ureter, which was quite stuck to the underlying tissue, including the external iliac artery. This was carefully dissected using Metzenbaum scissors and electrocautery, being sure to preserve the vasculature to the ureter itself. Once this was mobilized down to the bladder, a significant inflammatory rind was seen around the distal ureter which corresponded to the location of the prior stricture. Once this was dissected adequately, attention was then placed to dropping the bladder. The Gaytan catheter was then instilled with 240 mL of sterile water, and then the left pedicle was able to be dissected out to allow free mobility of the left side of the bladder. A small amount of dissection was done anteriorly and right side which allowed good mobility of the bladder, at which point I dissected the psoas tendon and could visualize the genitofemoral nerve. Using a 0 Vicryl, I was able to pass through the body of the psoas fascia and 2 parallel stitches were thrown in succession and then attached to the bladder itself, which allowed good mobility of the bladder to the psoas for a psoas hitch. At this time, using electrocautery a dependent portion of the bladder was visualized and was cut through the overlying serosa, all the way through the detrusor and into the bladder mucosa. This hole was made large enough for attachment of the ureter to the bladder, at which point the ureter was then dissected and cut as distal as possible. This was spatulated only minimally, as it was widely patent and quite hydronephrotic. A good hydronephrotic drip was seen from the ureter itself. At this point using 4-0 Vicryl, interrupted sutures were undertaken to approximate the posterior plate of the ureter to the bladder, and this was carried out sequentially around the ureter. Approximately 10 total sutures were placed. The first 6 were placed and then a 6 x 22 cm stent was then passed into the kidney. A ZIPwire was passed through the proximal portion of the ureter up into the kidney, and the stent was then passed proximally. Then the distal curl was placed into the bladder. The rest of the sutures were then placed and a tension-free watertight anastomosis was seen. This was tested with irrigation into the bladder. No leak was visualized. The abdomen was then vigorously irrigated and all irrigation was removed. Good hemostasis was seen throughout with no active evidence of bleeding. The bowel was then removed from the retractor and appeared well vascularized. Lap count was performed at that time which was all normal, as well as all needle counts. The bowel was then replaced to its portion within the pelvis and lower abdomen. Attention was then placed to placing a drain through the left lower quadrant abdominal wall. Using electrocautery, a small incision was made through the skin and a clamp was passed through this and into the abdomen. The drain was then pulled through. This was sutured to the skin with silk suture and placed to bulb suction. Attention was then placed to closing the fascia using 0 PDS, starting at the superior portion as well as the inferior portion of the incision. This was carried sequentially toward the middle and each was tied to itself. Attention was placed to preserving bowel far away from our closure. No obvious bowel was entrapped within our closure. This was irrigated out with sterile water. We then used a 3-0 Vicryl, to close the space of her anterior abdominal wall. Following this, lynn were then attached to the skin to approximate the skin edges and a dressing was placed over top. The patient was then awoken and taken to recovery in stable condition. The patient will be admitted to the hospital for observation and monitoring. cc: Brayan Powers MD MTDD
[2019-01-17] MEDS: NORCO-10 PO PRN (22:17)
[2019-01-17] MEDS: COLACE PO SCH (22:19)
[2019-01-17] MEDS: ZANAFLEX PO SCH (22:22)
[2019-01-17] MEDS: SANCTURA PO SCH (22:22)
[2019-01-18] MEDS: NORCO-10 PO PRN ×4 (03:12→21:35)
[2019-01-18] MEDS: ZOFRAN IV PRN (03:24)
[2019-01-18] MEDS: KEFZOL 1 GM/D5W 1 GM/50 ML IVPB IV SCH (06:04)
[2019-01-18] MEDS: REGLAN PO SCH ×3 (06:05→15:23)
[2019-01-18] MEDS: MIRAPEX PO SCH ×2 (07:47→09:38)
[2019-01-18] MEDS: SANCTURA PO SCH ×3 (07:47→21:35)
[2019-01-18] MEDS: NEXIUM PO SCH ×3 (07:47→09:38)
[2019-01-18] MEDS: COLACE PO SCH ×3 (07:48→21:35)
[2019-01-18] MEDS: ZANAFLEX PO SCH ×3 (07:48→21:35)
[2019-01-18 08:05] LABS: CALCIUM 8.7 mg/dL (8.8-10.2); CREATININE 1.2 mg/dL (0.5-0.9); POTASSIUM 4.2 mmol/L (3.5-5.1)
[2019-01-18 08:07] LABS: HEMATOCRIT 32.1 % (37.0-47.0); MCH 25.4 PG (27-31); MCHC 31.2 g/dL (33-37); MCV 81.7 FL (81-99); MPV 11.4 FL (7.4-10.4); RBC 3.93 XMIL (4.2-5.4); RDW 13.8 % (11.5-14.5); WBC 10.33 X1000 (4.8-10.8)
[2019-01-18] MEDS ORDERED: HEPARIN SUBQ SCH (08:30)
--- NOTE | 2019-01-18 08:49 | PROGRESS NOTE ---
DATE: 01/18/2019 SUBJECTIVE: Postop day 1 from right open ureteral reimplant with Psoas Hitch, lysis of adhesions and right ureteral stent placement. The patient clinically is doing well. She states she is having some abdominal pain that seems to be controlled by her oral and IV pain medication. She denies any nausea or vomiting. She states that she was able to drink some fluid yesterday. Denies any passage of flatus. Has 1 L of urinary output. PEMA drain has drained 370, with minimal drainage overnight. OBJECTIVE: Vital Signs: Temperature 98.6, heart rate 66, blood pressure 121/76, oxygen saturation 100% on room air. General: No acute distress. Resting comfortably in bed. Alert and oriented x3. Respiratory: Good respiratory effort without audible wheezing or rales. Abdomen: Soft, nontender, nondistended. Dressing in place with a slight amount of shadowing, which has been marked and stable. PEMA drain in the right lower quadrant with a small amount of serosanguineous fluid. : No suprapubic tenderness. Urethral catheter in place, draining clear- yellow urine, with no evidence of any clots. Musculoskeletal: No lower extremity edema. Moving all extremities. LABORATORY DATA: White blood cell count 10.3, hemoglobin 10, hematocrit 32.1, platelets 243,000. Sodium 134, potassium 4.2, chloride 100, bicarb 24, creatinine 1.2, glucose 119, calcium 8.7. ASSESSMENT AND PLAN: Ms. Can is a 63-year-old with hypertension, diabetes, right ureteral stricture, status post right ureteral reimplant with right ureteral stent and lysis of adhesions on 01/17/2019. The patient is doing well and seems to be recovering appropriately. The patient has an extensive past surgical history, and is having some abdominal pain today, which appears to be appropriate postoperatively. She denies any nausea or vomiting, has not passed any gas. Abdomen is soft and nontender today, nondistended. PEMA drain initially put out approximately 350 mL in the first few hours, but this is improved. Minimal drainage this morning. The patient's vital signs have all been within normal limits. She is not tachycardic, and blood pressures are stable. Hemoglobin and hematocrit are 10 and 32 from 11 and 36 preoperatively. The patient's renal function is slightly worse today at 1.2 from 0.9. The patient is still slightly positive on fluid intake. Will continue with intravenous fluids. Encouraged her to be ambulatory. Will start a full liquid diet today. Continue pain medication and stool softener. Will start heparin today for prophylaxis. Encouraged her to be ambulatory, which she states she will perform later today. Will continue home medications. The patient will need continued monitoring in the hospital. cc: Brayan Powers MD MTDD
[2019-01-18] MEDS: LR 1,000 ML IV SCH ×4 (09:37→20:05)
[2019-01-18] MEDS: SENOKOT PO SCH ×2 (09:53→21:34)
[2019-01-18] MEDS: MORPHINE IV PRN ×2 (10:14→20:04)
[2019-01-18] MEDS: HEPARIN SUBQ SCH (17:01)
[2019-01-19] MEDS: LR 1,000 ML IV SCH ×2 (03:39→17:28)
[2019-01-19] MEDS: MORPHINE IV PRN ×2 (03:39→10:51)
[2019-01-19] MEDS: REGLAN PO SCH ×4 (05:38→17:29)
[2019-01-19] MEDS: HEPARIN SUBQ SCH ×3 (05:38→21:04)
[2019-01-19] MEDS: NORCO-10 PO PRN ×2 (07:20→17:29)
--- NOTE | 2019-01-19 08:26 | PROGRESS NOTE ---
DATE: 01/19/2019 SUBJECTIVE: Postoperative day 2 from open right ureteral reimplant with extensive lysis of adhesions, who is recovering well. She complains of some bladder spasms symptoms and say she is leaking around the catheter. Her catheter is draining well with clear yellow urine. She denies any fevers or chills. Her abdominal pain seems to be relatively well controlled today. She was minimally ambulatory yesterday and tolerated only a little bit of her diet. She denies any nausea, vomiting. The patient walked one time in the hallway and did not sit up in the chair. She has not been performing incentive spirometry. OBJECTIVE: Vital signs: Temperature 99.0 degrees, blood pressure 152/90, heart rate 74, oxygen saturation 100% on room air. General: No acute distress. Resting comfortably in bed. Alert and oriented x3. Respiratory: Good respiratory effort without audible wheezing or rales. Abdomen: Soft, nontender, nondistended. Midline incision closed with lynn well- healing. No evidence of any fluid or drainage from the incision itself. PEMA drain in the right lower quadrant with a small amount of serosanguineous fluid. Urethral catheter in place draining clear yellow urine. Musculoskeletal: Moving all extremities. LABS: PEMA creatinine 0.9. WBC 7.9, Hemoglobin 10.8, Hematocrit 35.2, Platelets 218, Sodium 134 Potassium 4.6, Chloride 104, Bicarbonate 21, BUN 12, Cr 0.9, Glucose 115. ASSESSMENT AND PLAN: Ms. Can is a 63-year-old with history of hypertension, diabetes, right ureteral stricture status post right ureteral reimplant with right ureteral stent and lysis of adhesions on 01/17/2019. The patient overall seems to be doing relatively well. She is recovering appropriately. The patient's pain seems to be improving on oral pain medication. She is able to be ambulatory 1 time yesterday. Denies any nausea, vomiting, but has not eaten much since she has been here. The patient's urethral catheter is draining well with clear yellow urine. The patient has a history of overactive bladder and appears to be having spasms whether that is related to baseline overactive bladder versus indwelling catheter versus ureteral stent. The patient takes trospium BID at home. Seems to be working when she is at her home, but may not be as effective today with added catheter and stent. May give her a dose of Levsin to see if this helps. PEMA drain has put out minimal amount. We will plan to get a PEMA creatinine today and if flow would remove. We will follow up morning labs. Continue her home medications. The patient is on heparin t.i.d. Encouraged her to remain ambulatory and use her incentive spirometer. I showed her how to perform this, this morning however, patient was not able to get large volumes. The patient has a prior extensive surgical history and is well aware of incentive spirometer and states she will use it later today. We will continue to monitor. We will plan to keep for continued follow-up due to her poor p.o. intake and minimal ambulation. We will follow up morning labs. We will continue to follow. Please call with questions or concerns. cc: Brayan Powers MD MTDD
[2019-01-19 08:38] LABS: CREATININE BODY FLUID 0.9 mg/dL
[2019-01-19 09:48] LABS: HEMATOCRIT 35.2 % (37.0-47.0); HEMOGLOBIN 10.8 g/dL (12.0-16.0); MCH 26.1 PG (27-31); MCHC 30.7 g/dL (33-37); MPV 10.6 FL (7.4-10.4); RBC 4.14 XMIL (4.2-5.4); RDW 14.4 % (11.5-14.5); WBC 7.85 X1000 (4.8-10.8)
[2019-01-19 09:55] LABS: AGAP 9; BUN 12 mg/dL (8-22); CALCIUM 8.8 mg/dL (8.8-10.2); CHLORIDE 104 mmol/L (98-107); COSMO 269; CREATININE 0.9 mg/dL (0.5-0.9); ESTIMATED GFR > 60; GLUCOSE 115 mg/dL (70-104); POTASSIUM 4.6 mmol/L (3.5-5.1); SODIUM 134 mmol/L (136-145); TCO2 21 mmol/L (25-35)
[2019-01-19] MEDS: COLACE PO SCH ×2 (10:50→21:03)
[2019-01-19] MEDS: SANCTURA PO SCH ×2 (10:50→21:04)
[2019-01-19] MEDS: MIRAPEX PO SCH (10:50)
[2019-01-19] MEDS: ZANAFLEX PO SCH ×2 (10:50→21:03)
[2019-01-19] MEDS: SENOKOT PO SCH ×2 (10:51→21:03)
[2019-01-19] MEDS: NEXIUM PO SCH (10:51)
[2019-01-19] MEDS: LEVSIN PO SCH (17:30)
[2019-01-19] MEDS: BENADRYL PO PRN (21:04)
[2019-01-20] MEDS: NORCO-10 PO PRN ×2 (05:39→10:48)
[2019-01-20] MEDS: HEPARIN SUBQ SCH ×2 (05:40→13:52)
[2019-01-20] MEDS: REGLAN PO SCH ×3 (05:40→13:52)
--- NOTE | 2019-01-20 07:54 | Diag Imaging Result Doc PS360 ---
EXAM: KUB ABDOMEN 01/20/2019 HISTORY: Postop Abdominal distention, constipation TECHNIQUE: KUB COMMENT: There is stool throughout the colon. There is a right ureteral stent. There are surgical skin clips from the umbilicus to the symphysis pubis. There is some small bowel gas seen in the upper abdomen. The stomach does not appear to be distended. Compared to 04/05/2018 there is more stool in the colon and gas in the small bowel. IMPRESSION: Constipation. Otherwise nonspecific abdomen. Electronically signed by José Miguel Recinos 01/20/2019 7:51 AM
--- NOTE | 2019-01-20 08:41 | PROGRESS NOTE ---
DATE: 01/20/2019 SUBJECTIVE: Postop day 3 from right open ureteral reimplant with psoas hitch and extensive lysis of adhesions. The patient overall is doing well. Her pain seems to be better controlled. She denies any nausea or vomiting. The patient has had good urinary output from her urethral catheter. The patient's bladder spasms seem to be improved too. The patient was able to be ambulatory yesterday and tolerated a diet. The patient continues not pass any flatus. She states she may feel like her abdomen is slightly more distended today, but her pain is better controlled. OBJECTIVE: Vital signs: Temperature 98.8 degrees, heart rate 67, blood pressure 156/97, oxygen saturation 100% on room air. General: No acute distress. Resting comfortably in bed, alert orient x3. Respiratory: Good respiratory effort without audible wheezing or rales. Abdomen: Soft, nontender without distention. Midline incision is well healed with lynn present. No drainage seen. The patient's PEMA site is covered with bandage with no shadowing. Genitourinary: No suprapubic tenderness. No CVA tenderness. Musculoskeletal: Moving all extremities. LABORATORY DATA: The patient had a white blood cell count of 7.8 yesterday with hematocrit of 35. Creatinine was 0.9 and a PEMA creatinine of 0.9. ASSESSMENT AND PLAN: Ms. Can is postoperative day 3 from right open ureteral reimplant with right ureteral stent placement, extensive lysis of adhesions on 01/17/2018. The patient overall is doing well and recovering appropriately. The patient seems to be better controlled on oral medications. She is able to be more ambulatory. She denies any nausea or vomiting and is eating a small amount. Her urethral catheter was removed this morning. The patient had over 3.5 L of urinary output yesterday. The patient remains on trospium and Levsin as necessary. Encouraged her to be ambulatory today. We will advance her diet, told her she could eat whatever she felt like. If patient is able to pass gas and able to urinate, would consider discharge later today. The patient has home pain medications, will be sent home with stool softeners and medications for spasms. Continue DVT prophylaxis. Bowel stimulation with Colace and Senna. Continue home medications. cc: MD SHARYN Rose
[2019-01-20] MEDS ORDERED: PERIDEX MT SCH (09:00)
[2019-01-20] MEDS: NEXIUM PO SCH (10:45)
[2019-01-20] MEDS: MIRAPEX PO SCH (10:45)
[2019-01-20] MEDS: ZANAFLEX PO SCH (10:46)
[2019-01-20] MEDS: LEVSIN PO SCH ×2 (10:46→13:52)
[2019-01-20] MEDS: SANCTURA PO SCH (10:47)
[2019-01-20] MEDS: BENADRYL PO PRN (10:49)
[2019-01-20 12:47] VITALS: BP 134/84
[2019-01-20] MEDS: COLACE PO SCH (13:51)
[2019-01-20] MEDS: SENOKOT PO SCH (13:53)
--- NOTE | 2019-01-21 15:23 | DISCHARGE SUMMARY ---
ADMISSION DATE: 01/17/2019 DISCHARGE DATE: 01/20/2019 ADMISSION DIAGNOSES: 1. Right ureteral stricture. 2. Hydronephrosis. 3. Extensive abdominal surgery history. DISCHARGE DIAGNOSES: 1. Right ureteral stricture. 2. Hydronephrosis. 3. Extensive abdominal surgery history. PROCEDURE PERFORMED: Open right ureteral reimplant with psoas hitch, right ureteral stent placement, and extensive lysis of adhesions. INDICATION FOR ADMISSION: The patient has a long history of right ureteral stricture, initially diagnosed back in 02/2018. The patient has undergone several ureteroscopic procedures for possible stones and hydronephrosis, which have all been negative for stones. The patient has evidence of severe right hydronephrosis and flank pain. The patient desires definitive surgical intervention. Risks, benefits, and alternatives to surgical procedure were discussed with the patient, and she elected to proceed. Discussed risk of bowel injury, bleeding, infection, recurrent ureteral stricture, need for indwelling ureteral stent, chronic pain, or bowel obstruction. The patient has had extensive abdominal surgery history with multiple surgeries as well as open cholecystectomy recently that was converted from laparoscopic to open due to her prior surgical history. HOSPITAL COURSE: The patient presented to the preop holding area the morning of 01/17/2019, and was taken to the operating room where she underwent a right open ureteral reimplant with psoas hitch and right ureteral stent placement, as well as extensive lysis of adhesions with the assistance of General Surgery and Dr. Adams. The patient did well from the procedure, was taken to recovery, and was admitted to the floor. The patient had a ureteral catheter in place, draining clear yellow urine, as well as a right lower quadrant Jonah drain. The drain was removed on postop day 2 as it had low output, and had a creatinine of 0.9. The patient's pain was significant on postop day 1, but improved over her hospital course. The patient's Gaytan catheter was removed. The patient was able to spontaneously void on postop day 3, had good pain control, was tolerating a diet, was afebrile with stable vital signs, and had stable creatinine and hemoglobin/hematocrit. The patient was discharged home at that time, and will return to clinic for followup. DISCHARGE MEDICATIONS: None. She was encouraged to take her home medications. The patient asked to be sent home with no new medications. DISCHARGE INSTRUCTIONS: The patient was educated to call Urology office if she develops fevers, chills, nausea, vomiting, inability to have a bowel movement, worsening pain, abdominal distention, or confusion. The patient was also encouraged to limit her weight lifting to less than 10 pounds, an approximate weight of a 1-gallon jug of milk for 4 weeks following her surgery. She was encouraged to be ambulatory in the postoperative setting and was told she could shower but no baths or submersion of incisions for 4 weeks, She was given the phone number for the Urology Clinic if issues arose. DISCHARGE FOLLOWUP: The patient will be discharged to follow up in Urology office in 1 week for staple removal and follow-up. cc: Brayan Powers MD MTDD
== END 2019-01-20 15:13 | disposition home or self-care (01) | DRG 655 ==
LOC: SURHOLD 05:17 → EDSTATUS 07:00 → 4N 09:08
PROVIDERS: ADMIT Urology; ATTEND Urology
CPT/HCPCS: 74000; 74018; 80048; 81001; 82570; 85027; 87088; 94761; A9270; J0330; J0690; J1644; J2270; J2405; J3010; J7120; S0020